=== PATIENT | male | born 1975 | race Caucasian/White ===

== ENCOUNTER 2016-12-27 10:42 | Emergency (ER) | payer OTHER ==
[2016-12-27 10:47] VITALS: BP 146/79; PULSE 86; RESP 20; TEMP 98.9; O2SAT 97
--- NOTE | 2016-12-27 11:48 | ED PDOC ---
HPI: CCC, URI, Sore Throat Time Seen by Provider: 12/27/16 10:55 Chief Complaint (Nursing): Cough, Cold, Congestion Chief Complaint (Provider): Sore throat, cough History Per: Patient History/Exam Limitations: no limitations Onset/Duration Of Symptoms: Days Current Symptoms Are (Timing): Still Present Location Of Pain: None Sick Contacts (Context): Family Member(s) (Son ) Ear Symptoms: Bilateral: None Additional Complaint(s): Pt states he called out from work today and needs a note. Past Medical History Reviewed: Historical Data, Nursing Documentation, Vital Signs Vital Signs: Last Vital Signs Temp 98.9 F 12/27/16 10:46 Pulse 86 12/27/16 10:46 Resp 20 12/27/16 10:46 BP 146/79 12/27/16 10:46 Pulse Ox 97 12/27/16 10:46 - Medical History PMH: No Chronic Diseases - Surgical History Surgical History: No Surg Hx - Family History Family History: States: Unknown Family Hx - Living Arrangements Living Arrangements: With Family - Social History Current smoker - smoking cessation education provided: No Alcohol: Occasional Drugs: Denies - Immunization History Hx Influenza Vaccination: No - Home Medications Home Medications: Ambulatory Orders Medication Instructions Recorded Ibuprofen 600 mg PO Q8 #30 tab 08/30/15 Promethazine DM [Phenergan DM Oral 5 ml PO Q8 PRN #2 oz 08/30/15 Syrup] - Allergies Allergies/Adverse Reactions: Allergies Allergy/AdvReac Type Severity Reaction Status Date / Time No Known Allergies Allergy Verified 08/30/15 18:05 Review of Systems ROS Statement: Except As Marked, All Systems Reviewed And Found Negative Constitutional: Negative for: Fever, Chills ENT: Positive for: Throat Pain Respiratory: Positive for: Cough. Negative for: Shortness of Breath Gastrointestinal: Negative for: Nausea, Vomiting Physical Exam - Reviewed Nursing Documentation Reviewed: Yes Vital Signs Reviewed: Yes - Physical Exam Appears: Positive for: Well, Non-toxic, No Acute Distress Head Exam: Positive for: ATRAUMATIC, NORMAL INSPECTION, NORMOCEPHALIC Skin: Positive for: Normal Color, Warm, DRY Eye Exam: Positive for: Normal appearance ENT: Negative for: Normal ENT Inspection (Mild erythema ) Neck: Positive for: Normal, Painless ROM Cardiovascular/Chest: Positive for: Regular Rate, Rhythm Respiratory: Positive for: CNT, Normal Breath Sounds Gastrointestinal/Abdominal: Positive for: Normal Exam, Bowel Sounds, Soft Back: Positive for: Normal Inspection Extremity: Positive for: Normal ROM Neurologic/Psych: Positive for: Alert, Oriented - ECG O2 Sat by Pulse Oximetry: 97 Medical Decision Making Medical Decision Making: Pt does not want a throat swab in ER. Disposition - Clinical Impression Clinical Impression: Common cold - Patient ED Disposition Is Patient to be Admitted: No Counseled Patient/Family Regarding: Diagnosis, Need For Followup - Disposition Referrals: [facility] [Outside] Disposition: Routine/Home Disposition Time: 11:49 Condition: GOOD Instructions: Cold Symptoms (ED) Forms: [facility] ED School/Work Excuse
== END 2016-12-27 12:08 | disposition home or self-care (01) ==
LOC: H.ER 10:42
DX: J00 Acute nasopharyngitis [common cold] (principal)